=== PATIENT | female | born 1965 | race Caucasian/White ===

== ENCOUNTER 2017-05-07 16:37 | Emergency (ER) | payer MEDICAID ==
[~2017-05-07] VITALS: Ht 177.8 cm; Wt 68.0 kg
[2017-05-07 16:49] VITALS: Ht 177.8 cm; Wt 68.0 kg
[2017-05-07 19:30] VITALS: BP 126/83
== END 2017-05-07 19:54 | disposition home or self-care (01) ==
LOC: ED 16:37
DX: T40.1X1A Poisoning by heroin, accidental (unintentional), initial encounter (principal); F11.20 Opioid dependence, uncomplicated; Y92.89 Other specified places as the place of occurrence of the external cause